=== PATIENT | female | born 1930 | race Caucasian/White ===

== ENCOUNTER 2020-12-17 09:00 | Inpatient (IN) ==
--- NOTE | 2020-11-20 08:54 | PAT Medication Instructions ---
Medication Instructions Date of Service November 20, 2020 Home Medications Medication Instructions Recorded tramadol 50 mg PO Q4H PRN #30 tab 01/11/20 ascorbic acid (vitamin C) 500 mg capsule 1,000 mg PO DAILY atorvastatin 10 mg tablet 10 mg PO HS biotin 2,500 mcg capsule 5,000 mcg PO DAILY calcium carbonate 600 mg(1,500 mg)-vitamin D3 800 unit chewable tablet 1 tab PO DAILY glucosamine HCl 1 dose PO DAILY omega-3 acid ethyl esters 1 dose PO DAILY tramadol 50 mg PO Q4H PRN STOP taking 2 weeks before surgery If surgery is within 2 weeks, stop taking as soon as possible. glucosamine HCl 1 dose PO DAILY omega-3 acid ethyl esters 1 dose PO DAILY DO NOT take the morning of surgery ascorbic acid (vitamin C) 500 mg capsule 1,000 mg PO DAILY biotin 2,500 mcg capsule 5,000 mcg PO DAILY calcium carbonate 600 mg(1,500 mg)-vitamin D3 800 unit chewable tablet 1 tab PO DAILY Take morning of surgery With a small sip of water, OTHERWISE NOTHING TO EAT OR DRINK AFTER MIDNIGHT: tramadol 50 mg PO Q4H PRN (if really needed, may be taken up to four hours before surgery) Take evening before surgery atorvastatin 10 mg tablet 10 mg PO HS tramadol 50 mg PO Q4H PRN (if needed) Other Notes If you have any questions please call us at [phone] or [phone] or [phone] or [phone]
--- NOTE | 2020-11-20 12:14 | Anesthesiology Consultation ---
Date of Service November 20, 2020 Assessment & Plan (1) Encounter for pre-operative examination: COVID Status: As of 11/20 assessment, patient denies travel to endemic area, known exposure/sick contacts, or symptoms of COVID19. Patient advised to adhere to social distancing guidelines, wear a mask in public and avoid large crowds or unnecessary travel in the 2 weeks leading up to surgery. Preoperative COVID19 testing to be completed prior to surgery per surgeon's arrangements. Pat ient encouraged to be extra cautious/conscientious with COVID precautions between COVID testing and surgery. Difficult intubation. Parathyroid surgery done 08/10/12 at [facility]. "Route: eliot- traceal. Method: intubating LMA. Adjuncts: Fiberoptic bronchoscopy. Hilario blade #3, Tube: standard tube 7.0. Anatomic difficult airway due to (limited view of glottis, limited mouth opening, limited neck mobility. Ease of Vent: Easy. Intubation Attempts > 3.. Recommendations for future providers: will require intubation with intubating LMA or with awake FOB." H/O difficult intubation was discussed with patient and her niece (who is a physician). She is also aware that if there is difficulty with intubation she may have a more significant sore throat/hoarse voice than normal. Prosthetic L eye -- pt would like to leave this in DOS. Chart Review Chart Review: Acceptable Risk for Surgery and Patient seen in Pre Admission Testing Teaching & Discussion Instructed NPO after midnight before surgery, except medications with 15 cc of water. Medication instructions provided according to the PAT guidelines. History Surgery Operation Date: 12/17/20 07:15 Proposed Procedures p Right Total Shoulder Arthroplasty Reversed - Yg Griffin MD Height/Weight Height: 5 ft 8.75 in Weight: 60.7 kg Allergies Allergy/AdvReac Type Severity Reaction Status Date / Time codeine AdvReac Unknown "spaced Verified 11/19/20 13:09 out" Medications Home Medications Medication Instructions Recorded Confirmed Last Taken ascorbic acid (vitamin C) 500 mg 1,000 mg PO DAILY cap 10/11/19 11/19/20 12/26/19 08:00 capsule atorvastatin 10 mg tablet 10 mg PO HS 10/11/19 11/19/20 12/26/19 08:00 biotin 2,500 mcg capsule 5,000 mcg PO DAILY cap 10/11/19 11/19/2020 08:00 calcium carbonate 600 mg(1,500 1 tab PO DAILY 10/11/19 11/19/20 12/26/19 08:00 mg)-vitamin D3 800 unit chewable tablet glucosamine HCl 1 dose PO DAILY 10/11/19 11/19/20 12/26/19 08:00 omega-3 acid ethyl esters 1 dose PO DAILY 10/11/19 11/19/20 12/26/19 08:00 tramadol 50 mg PO Q4H PRN #30 tab 01/11/20 11/19/20 Unknown Past Medical History Medical History History of thyroid nodule [place] (hard of hearing) Hyperlipidemia Osteoarthritis Osteoporosis 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 "Route: eliot-traceal. Method: intubating LMA. Adjunts: Fiberoptic bronchoscopy. Hilario blade #3, Tube: standard tube 7.0. Anatomic difficult airway due to (limited view of glottis, limited mouth opening, limited neck mobility. Ease of Vent: Easy. Intubation Attempts > 3.. Recommendations for future providers: will require intubation with intubating LMA or with awake FOB." History of hysterectomy History of left hip replacement Left PHOEBE (01/09/20): SAB at L3/L4 (x1 attempt) at [facility] History of parathyroid surgery History of revision of total replacement of right knee joint History of tonsillectomy Past Anesthesia History Difficult Airway and No Family Hx of Anesthesia Complications History of PONV No Hx of PONV and No Hx of Motion Sickness (jsut very minor) Social History Smoking Status: Never smoker Do You Dip or Chew Tobacco: No Hx Alcohol Use: No Hx Substance Use: No substance use type: does not use Review of Systems Pt denies any recent chest pain, shortness of breath, palpitations, cough, fever, URI, or uncontrolled acid reflux. Physical Exam Vital Signs BP: 158/65 (pt reports taking BP at home, usually 130s systolic) P: 65bpm SPO2: 95% RA T: 98.1 F R: 16 ENMT Mouth: no dental restorations, no chipped teeth and no loose teeth Thyromental Distance: < 3.5 Finger Breadths (3) Mallampati Class: II Neck normal visual inspection and + limited neck extension (mildly limited) Respiratory normal respiratory effort, lungs clear to auscultation Cardiovascular RRR, no murmur, no edema Lab Results Anesthesia Preop Results Results Anesthesia Widget: WBC 5.05 K/uL (4.8-10.8) 11/20/20 Hgb 12.4 g/dL (12.0-16.0) 11/20/20 Hct 37.4 % (37-47) 11/20/20 Plt 180 K/uL (130-400) 11/20/20 Na 142 mmol/L (136-145) 11/20/20 K 4.2 mmol/L (3.5-5.1) 11/20/20 Cl 106 mmol/L (98-107) 11/20/20 CO2 29 mmol/L (21-32) 11/20/20 BUN 19 mg/dl (7-18) H 11/20/20 Creat 0.74 mg/dl (0.6-1.2) 11/20/20 Glucose Level 78 mg/dl (70-99) 11/20/20 PT 10.6 Seconds (9.0-12.0) 11/20/20 PTT 25.1 Seconds (21.0-31.0) 11/20/20 INR 1.0 (0.9-1.1) 11/20/20 HA1c Pending 11/20/20 Urine Color Dark Yellow 11/20/20 Urine Appearance Clear (Clear) 11/20/20 Urine pH 6.0 (4.5-7.5) 11/20/20 Urine Specific Gilby 1.025 (1.000-1.030) 11/20/20 Urine Protein Trace (Negative) H 11/20/20 Urine Glucose (UA) Negative (Negative) 11/20/20 Urine Ketones Trace (Negative) H 11/20/20 Urine Blood Trace (Negative) H 11/20/20 Urine Nitrite Negative (Negative) 11/20/20 Urine Bilirubin Negative (Negative) 11/20/20 Urine Urobilinogen Negative (Negative) 11/20/20 Urine Leukocyte Esterase 2+ (Negative) H 11/20/20 Urine WBC (Auto) >30 /hpf (0-5) H 11/20/20 Urine RBC (Auto) 5-10 /hpf (0-4) H 11/20/20 Urine Hyaline Casts (Auto) 1-5 /lpf (0-5) 11/20/20 Urine Epithelial Cells (Auto) 0-5 /lpf (0-5) 11/20/20 Urine Bacteria (Auto) Negative (Negative) 11/20/20 Urine Yeast Not Reportable 11/20/20 Blood Type A Positive 11/20/20 Antibody Screen NEGATIVE 11/20/20 Testing Electrocardiogram Date: 12/19/19 Findings: + NSR @ (63bpm) iRBBB.. EKG from 03/10/2011, PVCs are no longer present. Chest X-Ray Date: 12/19/19 Findings: + NAD
--- NOTE | 2020-12-14 21:25 | History & Physical Report ---
Date of Service December 14, 2020 Assessment & Plan (1) Rotator cuff arthropathy of right shoulder: Treatment options discussed with patient. She has failed conservative measures as above. She would like to proceed with surgical intervention. Risks, benefits and alternatives to surgery including but not limited to infection, DVT, pain, stiffness, need for revision surgery, damage to blood vessels, damage to nerves, PE, , were discussed with the patient and they wish to proceed. Plan on right reverse total shoulder arthroplasty at [facility] on 12/17/20. All questions answered. She will follow up post op. History of Present Illness Chief Complaint: Right shoulder pain Primary Care Provider: Noe Freeman 89 year old female with PMHx significant for high cholesterol and prosthetic eye presents with longstanding right shoulder pain. Pain is interfering with her daily and leisure activities. She has failed conservative measures including injections, NSAIDs, and therapy. She would like to proceed with surgical intervention. Patient denies headaches, sweats, fevers, chills, double vision, blurred vision, cough, sore throat, dysphagia, chest pain, sob, wheezing, n/v/d/c, numbness, tingling, fatigue, urinary symptoms, mood disorders. ROS positive for rigth shoulder pain and stiffness. Allergies Allergy/AdvReac Type Severity Reaction Status Date / Time codeine AdvReac Unknown "spaced Verified 11/19/20 13:09 out" Home Medications Medication Instructions Recorded Confirmed Type ascorbic acid (vitamin C) 500 mg 1,000 mg PO DAILY cap 10/11/19 11/19/20 History capsule atorvastatin 10 mg tablet 10 mg PO HS 10/11/19 11/19/20 History biotin 2,500 mcg capsule 5,000 mcg PO DAILY cap 10/11/19 11/19/20 History calcium carbonate 600 mg(1,500 1 tab PO DAILY 10/11/19 11/19/20 History mg)-vitamin D3 800 unit chewable tablet glucosamine HCl 1 dose PO DAILY 10/11/19 11/19/20 History omega-3 acid ethyl esters 1 dose PO DAILY 10/11/19 11/19/20 History tramadol 50 mg PO Q4H PRN #30 tab 01/11/20 11/19/20 Rx Past Med/Surg History Medical History History of thyroid nodule [place] (hard of hearing) Hyperlipidemia Osteoarthritis Osteoporosis 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 "Route: eliot-traceal. Method: intubating LMA. Adjunts: Fiberoptic bronchoscopy. Hilario blade #3, Tube: standard tube 7.0. Anatomic difficult airway due to (limited view of glottis, limited mouth opening, limited neck mobility. Ease of Vent: Easy. Intubation Attempts > 3.. Recommendations for future providers: will require intubation with intubating LMA or with awake FOB." History of hysterectomy History of left hip replacement Left PHOEBE (01/09/20): SAB at L3/L4 (x1 attempt) at [facility] History of parathyroid surgery History of revision of total replacement of right knee joint History of tonsillectomy Family History Other Breast cancer No family history of adverse response to anesthesia Social History Smoking Status: Never smoker Second Hand Exposure: No; Do You Dip or Chew Tobacco: No; Tobacco Cessation Education Requested by Patient: No Hx Alcohol Use: No Hx Substance Use: No Preferred Language: Setswana Communication Ability: Effective Visual Impairment: Blindness Route Sales Person Required: No Beliefs That Will Affect Care: None marital status: / Current Living Situation: Alone Other Information That Helps Us Care for You: No Feels Safe at Home: Yes Safety Concerns: Feels Safe At This Time Assistive Devices: Glasses and Prosthesis Assistive Devices Comment: left eye Review of Systems All systems reviewed & are unremarkable except as noted in HPI & below Physical Exam Constitutional: well developed and well nourished; no acute distress Eyes: PERRL, conjunctivae normal, anicteric sclerae ENMT: external ear and nose normal, oropharynx normal Neck: trachea midline, no thyromegaly Respiratory: normal respiratory effort, lungs clear to auscultation Cardiovascular: RRR, no murmur, no edema Musculoskeletal: Right shoulder: Active painful ROM. Tenderness anterolateral acromion. Positive impingement signs. ROM FF to 170 degrees, abduction to 80 degrees. Supraspinatus 3+/4, ER 4+/5, IR 5/5 Skin: no rashes, warm and dry Neurologic: patellar DTR's 2+ bilat, sensation intact Psychiatric: A+Ox3, euthymic affect Results & Data ([facility]) Diagnostic Findings Right shoulder radiographs: Subacromial spurring with AC joint OA. Cystic changes greater tuberosity with superior migration humeral head. Significant degenerative changes GH joint. MRI demonstrates large full thickness and retracted rotator cuff tear
[~2020-12-17 09:00] MED LIST: ACETAMINOPHEN 500 MG TAB PO SCH; BUPIVACAINE 0.5 % 5 MG/1 ML PF 10ML VIAL ONE; CeleBREX 200 MG CAP PO SCH; FAMOTIDINE 20 MG TAB PO SCH; GABAPENTIN 300 MG CAP PO SCH; METOCLOPRAMIDE HCL 10 MG TABLET PO SCH; TRANEXAMIC ACID 1,000 MG **IV Intra-op IV SCH; TRANEXAMIC ACID 1,000 MG **IV Pre-op IV SCH; ceFAZolin 1000MG 1,000 MG/7.5 ML SYR IV SCH; dexAMETHasone 4 MG TAB PO SCH
--- NOTE | 2020-12-17 09:52 | History & Physical Bridge Note ---
Date of Service December 17, 2020 History & Physical Bridge Note I have examined the patient, reviewed the History & Physical and in the interval since the performance of the History & Physical I have noted the following changes of clinical significance: no changes noted
[2020-12-17] MEDS ORDERED: GLYCOPYRROLATE 0.2 MG/ML VIAL ONE ×2 (10:20→10:22)
[2020-12-17] MEDS ORDERED: LIDOCAINE 2% 2 ML VIAL/AMP(20MG/ML) INFIL ONE (10:20)
[2020-12-17] MEDS ORDERED: PROPOFOL IV EMULSION 10 MG/ML 20 ML VIAL IV ONE (10:20)
[2020-12-17] MEDS ORDERED: ONDANSETRON INJ 2 MG/ML 2 ML VIAL ONE (10:20)
[2020-12-17] MEDS ORDERED: DEXAMETHASONE SOD INJ 4 MG/ML VIAL ONE (10:22)
[2020-12-17] MEDS ORDERED: PHENYLEPHRINE 100MCG/ML 5ML SYR IV PRN (10:22)
[2020-12-17] MEDS ORDERED: ATROPINE SULFATE 0.1 MG/ML 10ML SYR IV PRN (10:22)
[2020-12-17] MEDS ORDERED: ePHEDrine sulfate 50 MG/ML AMP IV PRN (10:22)
[2020-12-17] MEDS ORDERED: MEPERIDINE HCL 25 MG/ML CARP/VIAL IV PRN (10:22)
[2020-12-17] MEDS ORDERED: fentaNYL citrate 100 MCG/2 ML VIAL IV PRN (10:22)
[2020-12-17] MEDS ORDERED: ONDANSETRON INJ 2 MG/ML 2 ML VIAL IV PRN ×2 (10:22→16:28)
[2020-12-17] MEDS ORDERED: fentaNYL citrate 100 MCG/2 ML VIAL ONE (10:24)
[2020-12-17] MEDS ORDERED: MIDAZOLAM HCL 1 MG/ML 2ML VIAL ONE (10:24)
[2020-12-17] MEDS ORDERED: ePHEDrine sulfate 50 MG/ML AMP ONE (12:48)
[2020-12-17] MEDS ORDERED: SUGAMMADEX SODIUM 200 MG/2 ML VIAL IV ONE (13:05)
--- NOTE | 2020-12-17 14:17 | Operative Report ---
Post Operative Report Pre & Post Diagnosis Operation Date: 12/17/20 11:55 Pre-Op Diagnosis: Right Shoulder glenohumeral osteoarthritis, rotator cuff arthropathy, chronic irreparable rotator cuff tear, biceps tendinopathy Post-Op Diagnosis: Right shoulder glenohumeral osteoarthritis, rotator cuff arthropathy, chronic irreparable rotator cuff tear, biceps tendinopathy I identified the patient and participated in the time-out.: Yes Procedure Operation Date: 12/17/20 11:55 Actual Procedures p Right Total Shoulder Arthroplasty Reversed with Biceps Tenodesis(Right) - Yg Griffin MD Surgeon Yg Griffin MD Boring Machine Feeder Victoriano LIN Estimated Blood Loss 40 Findings Consistent with Post-Op Diagnosis Specimens Humeral head Drains 2 Hemovac Anesthesia Type General Regional Complications none Disposition Disposition: Recovery Room Indications 89-year-old female younger than stated age. Patient lives an active lifestyle. Patient has failed conservative management and has chronic pain and weakness of the right shoulder. Radiographs demonstrate some proximal migration humerus moderately advanced glenohumeral osteoarthritis and MRI demonstrates large degenerative retracted rotator cuff tear and osteoarthritis glenohumeral joint Description of Procedure The patient was taken to the operating room and anesthetized under regional block and general anesthetic. The patient was positioned on the operating table in a 30 beach chair position with a towel roll under the medial border of the right scapula. The arm was draped free to be able to manipulate the shoulder as needed. The right upper extremity was prepped and draped in usual sterile fashion. Exam demonstrated 150 degrees forward elevation 90 degrees abduction 30 degrees external rotation, a thin arm. An anterior deltopectoral approach was performed. A longitudinal incision was made in the deltopectoral interval. The skin was incised sharply. Subcutaneous flaps were elevated off the fascia. There was no well-developed cephalic vein. The clavipectoral fascia was divided at the lateral margin of the conjoined tendon and extended up to the CA ligament. The following findings were noted: There was marked biceps tenosynovitis and marked bursitis of the subscapularis tendon extending into a large subacromial bursal collection. Subscapularis tendon was intact the supraspinatus and infraspinatus tendon were torn and retracted with some infraspinatus tendon tissue appeared to be repairable. Biceps tendon was widened and had marked tendinopathy and chronic SLAP tear and labral tear with degenerative changes in the glenohumeral joint.. The upper centimeter of the pectoralis was released for inferior exposure. The biceps tendon findings demonstrated marked biceps tenosynovitis. A tenosynovectomy was performed and then the biceps tendon was tenodesed to the pectoralis tendon with #2 FiberWire. The proximal biceps was resected. The subscapularis tendon was taken down off the lesser tuberosity using a subperiosteal dissection. A #1 Vicryl traction suture was placed into the free end of the subscapularis tendon and capsule. The subscapular muscle fibers were split longitudinally at the level of the circumflex vessels. The circumflex vessels were identified and tied off with silk ties and divided laterally. A Kitner elevator was used to free up the inferior fibers of the subscapularis off of the capsule. The axillary nerve was identified with a tug test and protected with a blunt Carolyn retractor between the nerve and the capsule. The subscapularis tendon was then taken down off of the lesser tuberosity subperiosteally and subperiosteal dissection was performed along the neck of the humerus as the arm is gradually externally rotated exposing the humeral head. The humeral head findings demonstrated global articular thinning and wear with grade 3 close grade 4 osteoarthritis. A Pina elevator was used to assist in releasing the capsule of the neck of the humerus. The capsule was divided with Leblanc scissors down to the glenoid released off the anterior glenoid and the rotator interval was released to meet the capsular release and a 360 release of the subscapularis was accomplished. A Fukuda retractor was placed into the joint retracting the humeral head posterior. Glenoid findings demonstrated yumiko bal articular wear with a posterior inferior osteophyte.. The labrum and biceps tendon was resected. an anterior-inferior and posterior inferior capsular release were performed with electrocautery and a Pina elevator on bone with the axillary nerve protected inferiorly by the retractor. Posterior inferior osteophyte was resected. Attention was then taken to the humeral preparation. The cutting guide was placed into the humeral head. It was positioned at 20 of retroversion. Oscillating saw was used to resect the humeral head giving the cut above the level of the posterior rotator cuff insertion site. The humerus was then prepared for the stem. I used the ascend flex stem from [employer]. The sizing broaches were used followed by trial broaches up to a size 3B long which had the appropriate fit and fill. The appropriate sized cut protector was placed. The humerus was then retracted posterior to the glenoid. The glenoid was sized for a 25 mm baseplate. The guide for the baseplate was positioned in a 10 inferior tilt and the central drill hole was made. The reamer for the aequalis 25 mm hydroxyapatite-coated baseplate was used. The central drill was widened for the peg. The aequalis 25 mm hydroxyapatite-coated baseplate was impacted into position. The base plate was transfixed with superior and inferior locking screws and anterior and posterior compression screws with stable fixation. The fan reamer was used for the 36 millimeter glenoid sphere. After irrigation the standard 36 mm glenoid sphere was impacted onto the baseplate and the screw was tightened. Attention was taken back to the humerus. The cut protector was removed and the plus or high offset humeral tray trial was assembled to the trial stem rotated appropriately to get bony coverage and then screwed in position. A trial reduction was performed. A +6 x 36 trial insert demonstrated good stability and no shuck. The trials were removed. 3 drill holes are made into the harder bone in the bicipital groove area and 3 #5 FiberWire sutures were placed transosseously. The canal was irrigated with pulsatile lavage with saline solution. The final component was assembled. The final component was 3B long PTC stem assembled to plus or high offset tray and a 36+6 reversed insert. This was then impacted into the humerus with a tight press-fit. It was reduced to the glenoid sphere. Stability was verified. Subscapularis was repaired with the #5 FiberWire sutures using Som-Dontrell suture technique. Lateral row soft tissue repair was performed with #2 FiberWire [id number] sutures. The pectoralis was repaired with #2 FiberWire [id number] sutures reinforcing the biceps tendon tenodesis. The arm was taken through a range of motion which demonstrated 150 degrees forward e levation 90 degrees abduction and 45 degrees external rotation. The implant was stable through the range of motion tested. The wound was copiously irrigated. 2 Hemovac drains were placed. The deltopectoral interval was closed with [id number] #1 Vicryl sutures. The subcutaneous tissues were closed with 2- 0 Vicryl sutures. The skin was closed with tomasa. Sterile dressings were applied and a shoulder immobilizer. Victoriano LIN my physician certified first assistant assisted in the procedure to the entire procedure including patient positioning arm positioning prepping and draping soft tissue retraction instrument management suture management and performed the subcutaneous and skin closure and will participate in the postoperative care of the patient. I attest to the content of the Intraoperative Record and any orders documented therein. Any exceptions are noted below.
[2020-12-17] MEDS ORDERED: ESMOLOL HCL INJ 10 MG/ML 10ML VIAL IV ONE (14:29)
[2020-12-17] MEDS: LABETALOL HCL IV 5 MG/ML 20ML IV PRN ×2 (14:37→14:50)
--- NOTE | 2020-12-17 14:50 | XRay Report ---
XR shoulder RT min 2V routine CLINICAL HISTORY: Post shoulder surgery COMPARISON: None. DISCUSSION: There are postsurgical changes of a reverse total right shoulder arthroplasty. There is n o dislocation. There are overlying skin tomasa and surgical drains. There is gas within the soft tis sues consistent with recent surgery. IMPRESSION: Postsurgical changes of a reverse total right shoulder arthroplasty. ACT 112: Negative or not required by law. Electronically signed by: Elder Guadalupe M.D. 12/17/2020 2:49 PM
[2020-12-17] MEDS ORDERED: METOCLOPRAMIDE HCL INJ 5 MG/ML 2 ML VIAL IV PRN (16:28)
[2020-12-17] MEDS ORDERED: HYDROmorphone INJ 0.5 MG/0.5 ML SYR IV PRN (16:28)
[2020-12-17] MEDS ORDERED: oxyCODONE HCL IR 5 MG TAB (IMMEDIATE RELEASE) PO PRN (16:28)
[2020-12-17] MEDS ORDERED: bisacodyL 10 MG SUPP PR PRN (16:28)
[2020-12-17] MEDS ORDERED: NALOXONE HCL 0.4 MG/1 ML VIAL/CARP IV PRN (16:28)
[2020-12-17] MEDS ORDERED: MAGNESIUM HYDROXIDE SUSP 30 ML UDC PO PRN (16:28)
[2020-12-17] MEDS: LACTATED RINGER'S 1,000 ML IV SCH (16:30)
--- NOTE | 2020-12-17 16:42 | Anesthesiology Progress Note ---
Date of Service December 17, 2020 Anesthesia Post Procedure Vital Signs Vital Signs: Temp Pulse Pulse Resp BP Pulse Ox 12/17/20 15:55 67 18 160/75 H 93 12/17/20 15:40 72 18 157/65 H 92 12/17/20 15:25 36.5 C 65 12 152/66 H 94 12/17/20 15:15 67 20 156/71 H 94 12/17/20 15:05 66 19 157/70 H 95 12/17/20 14:55 63 19 159/71 H 92 12/17/20 14:45 65 18 172/77 H 94 12/17/20 14:35 78 16 185/86 H 98 12/17/20 14:25 74 20 188/85 H 99 12/17/20 14:18 36.0 C L 74 19 187/86 H 99 12/17/20 10:00 37.2 C 63 18 166/66 H 97 Transfer of Care Handoff Completed per policy Notes Mental Status: alert / awake / arousable and participated in evaluation Patient Amnestic to Procedure: Yes Nausea / Vomiting: adequately controlled Pain: adequately controlled Airway Patency, RR, SpO2: stable & adequate BP & HR: stable & adequate Hydration State: stable & adequate Anesthetic Complications: no major complications apparent
[2020-12-17] MEDS: SODIUM CHLORIDE 0.9% 1000ML 1,000 ML IV SCH (17:18)
[2020-12-17] MEDS: ceFAZolin 1000MG 1,000 MG/7.5 ML SYR IV SCH (20:20)
[2020-12-17] MEDS: DOCUSATE SODIUM 100 MG CAP PO SCH (20:21)
[2020-12-17] MEDS ORDERED: SENNA 8.6 MG TAB PO SCH (21:00)
[2020-12-17] MEDS ORDERED: ATORVASTATIN 10 MG TAB PO SCH (21:00)
[2020-12-17] MEDS: ACETAMINOPHEN 500 MG TAB PO SCH (21:26)
[2020-12-17] MEDS ORDERED: COUGH DROP (SUGAR FREE) LOZ 24 LOZ/1 BOX BUCCAL ONE (21:28)
[2020-12-17] MEDS ORDERED: ZOLPIDEM TARTRATE 10 MG TAB PO ONE (22:01)
[2020-12-18] MEDS: ceFAZolin 1000MG 1,000 MG/7.5 ML SYR IV SCH (03:46)
[2020-12-18] MEDS: SODIUM CHLORIDE 0.9% 1000ML 1,000 ML IV SCH (03:46)
[2020-12-18] MEDS: ACETAMINOPHEN 500 MG TAB PO SCH (05:30)
--- NOTE | 2020-12-18 06:45 | Orthopedic Progress Note ---
Date of Service December 18, 2020 Assessment & Plan (1) S/p reverse total shoulder arthroplasty: Plan: POD#1 Right reverse TSA, biceps tendodesis -PT/OT-no formal PT x 6 weeks. May do elbow/wrist/hand motion, shrugs, pendulums -DVT prophylaxis-SCDs, ASA 81mg daily -Pain management as written -AM labs pending -D/C planning-plan on discharge home, likely later today. Admission and Anticipated Discharge Date Admission Date: December 17, 2020 Subjective POD#1 right reverse TSA. Patient doing well. Not having any pain. No other complaints. Denies chest pain, sob, dizziness, n/v/d. Review of Systems Review of Systems: All systems reviewed & are unremarkable except as noted in Subjective Physical Exam Physical Exam: Dressing to right shoulder c/d/i, sling in place. Fingers mobile, good bark tanner strength. Distally n/v status and sensation intact. Constitutional: well developed and well nourished; no acute distress Results & Data ([facility]) Vital Signs (Past 12 Hours) Vital Signs Temp Pulse Pulse Resp BP Pulse Ox 12/18/20 02:23 36.5 C 75 20 147/69 H 94 12/17/20 23:06 36.4 C L 74 16 145/60 H 97 12/17/20 20:03 36.7 C 69 16 155/66 H 96
[2020-12-18 07:17] LABS: Basophils # (auto) 0.01 K/uL (0-0.2); Basophils % (auto) 0.1 %; Hematocrit (blood only) 34.3 % (37-47); Hemoglobin 11.2 g/dL (12.0-16.0); Immature Granulocytes # (auto) 0.02 K/uL (0.00-0.02); Immature Granulocytes % (auto) 0.2 %; Lymphocytes # (auto) 0.91 K/uL (1.2-3.4); Lymphocytes % (auto) 8.4 %; Mean Corpuscular Hemoglobin 29.9 pg (25-34); Mean Corpuscular Hgb Conc 32.7 g/dL (32-36); Mean Corpuscular Volume 91.7 fL (80-100); Mean Platelet Volume 9.7 fL (7.4-10.4); Monocytes # (auto) 0.95 K/uL (0.11-0.59); Monocytes % (auto) 8.8 %; Neutrophils # (auto) 8.91 K/uL (1.4-6.5); Neutrophils % (auto) 82.5 %; Platelet Count 183 K/uL (130-400); RDW Coefficient of Variation 13.4 % (11.5-14.5); RDW Standard Deviation 44.8 fL (36.4-46.3); Red Blood Count 3.74 M/uL (4.2-5.4)
[2020-12-18 07:35] LABS: BUN Creatinine Ratio 20.5 (10-20); Calcium 8.5 mg/dl (8.5-10.1); Creatinine Clr Calc Pharmacy 40.8 ml/min; Est GFR (African American) 66.2 ml/min; Est GFR (Non-African American) 57.1 ml/min; Potassium 4.3 mmol/L (3.5-5.1)
[2020-12-18] MEDS: LACTATED RINGER'S 1,000 ML IV SCH (07:35)
[2020-12-18] MEDS: DOCUSATE SODIUM 100 MG CAP PO SCH (08:51)
[2020-12-18] MEDS ORDERED: ASPIRIN 81 MG ECTAB PO SCH (09:00)
[2020-12-18] MEDS ORDERED: GLUCOSAMINE SULFATE 500 MG CAP PO SCH (09:00)
[2020-12-18] MEDS ORDERED: MULTIVITAMIN TAB PO SCH (09:00)
[2020-12-18] MEDS ORDERED: CALCIUM 600MG + VIT D 400 IU TAB PO SCH (09:00)
[2020-12-18] MEDS ORDERED: ASCORBIC ACID 500 MG TAB PO SCH (09:00)
--- NOTE | 2020-12-18 09:19 | Hospitalist Consultation ---
Date of Consultation December 18, 2020 Assessment & Plan (1) S/p reverse total shoulder arthroplasty: Postop management as per orthopedics Pain control, bowel regimen PT/OT Aspirin 81 mg daily for DVT prophylaxis, SCDs (2) Hyperlipidemia: Continue statin (3) Osteoporosis: Continue calcium carbonate (4) Osteoarthritis: Continue glucosamine, pain control as needed (5) History of primary hyperparathyroidism: Status post parathyroidectomy (6) Allergic rhinitis: No acute issues, not taking medication for this (7) DVT prophylaxis: SCDs, aspirin 81 mg daily Disposition-patient is likely be discharged later today, hospital service will sign off at this time. History of Present Illness Reason for Consultation: Postop medical management Requesting Physician: Dr. 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 Hospitalist service is consulted for medical management postoperatively. She feels excellent today, has no pain at all as nerve block still working. Denies CP or SOB, no nausea or vomiting. Not lightheaded and has been ambulating independently in the room. Allergies Allergy/AdvReac Type Severity Reaction Status Date / Time codeine AdvReac Unknown "spaced Verified 12/17/20 09:42 out" Home Medications Medication Instructions Recorded Confirmed Type ascorbic acid (vitamin C) 500 mg 1,000 mg PO DAILY cap 10/11/19 12/17/20 History capsule atorvastatin 10 mg tablet (Lipitor) 10 mg PO HS 10/11/19 12/17/20 History biotin 2,500 mcg capsule 5,000 mcg PO DAILY cap 10/11/19 12/17/20 History calcium carbonate 600 mg(1,500 1 tab PO DAILY 10/11/19 12/17/20 History mg)-vitamin D3 800 unit chewable tablet (Caltrate 600 plus D) glucosamine HCl 1 dose PO DAILY 10/11/19 12/17/20 History omega-3 acid ethyl esters 1 dose PO DAILY /12/2312/17/20 History acetaminophen 500 mg tablet 1,000 mg PO Q8 #60 tab 12/18/20 Rx (Tylenol Extra Strength) aspirin 81 mg tablet,delayed 81 mg PO DAILY #60 tab 12/18/20 Rx release oxycodone 5 mg tablet 5 - 10 mg PO .Q4h-6h PRN #30 tab 12/18/20 Rx MDD 6 Patient History Medical History Allergic rhinitis History of primary hyperparathyroidism History of thyroid nodule [place] (hard of hearing) Hyperlipidemia Osteoarthritis Osteoporosis 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. "Route: elito-traceal. Method: intubating LMA. Adjunts: Fiberoptic bronchoscopy. Hilario blade #3, Tube: standard tube 7.0. Anatomic difficult airway due to (limited view of glottis, limited mouth opening, limited neck mobility. Ease of Vent: Easy. Intubation Attempts > 3.. Recommendations for future providers: will require intubation with intubating LMA or with awake FOB." History of hysterectomy History of left hip replacement Left PHOEBE (01/09/20): SAB at L3/L4 (x1 attempt) at [facility] History of parathyroid surgery History of revision of total replacement of right knee joint History of tonsillectomy Family History Other Breast cancer No family history of adverse response to anesthesia Social History Smoking Status: Never smoker Second Hand Exposure: No; Do You Dip or Chew Tobacco: No; Tobacco Cessation Education Requested by Patient: No Hx Alcohol Use: No Hx Substance Use: No Preferred Language: Tajik Communication Ability: Effective Visual Impairment: Blindness Fisher Trot Line Required: No Beliefs That Will Affect Care: None marital status: / Current Living Situation: Alone Other Information That Helps Us Care for You: No Feels Safe at Home: Yes Safety Concerns: Feels Safe At This Time Assistive Devices: Glasses Assistive Devices Comment: left eye Review of Systems Review of Systems: All systems reviewed & are unremarkable except as noted in HPI & below Physical Exam Constitutional: WD/WN, vitals as above Eyes: + anicteric sclerae ENMT: external ear and nose normal, oropharynx normal Neck: trachea midline, no thyromegaly Respiratory: normal respiratory effort, lungs clear to auscultation Cardiovascular: RRR, no murmur, no edema Chest (Breasts): Chest: normal inspection of chest Gastrointestinal (Abdomen): normal bowel sounds, soft, nontender, no hepatosplenomegaly Musculoskeletal: Extremities: + extremities abnormal to inspection (RUE in sling), no cyanosis and no clubbing Skin: no rashes, warm and dry Neurologic: moves all extremities and awake; no focal motor deficits Psychiatric: A+Ox3, euthymic affect Lymphatic: no lymphedema Results & Data Results & Data ([facility]) Vital Signs (Past 12 Hours) Vital Signs Temp Pulse Pulse Resp BP Pulse Ox 12/18/20 07:15 36.6 C 68 16 153/67 H 95 12/18/20 02:23 36.5 C 75 20 147/69 H 94 12/17/20 23:06 36.4 C L 74 16 145/60 H 97 Laboratory Results 12/18/20 12/18/20 12/17/20 Range/Units 05:42 05:42 09:13 WBC 10.80 (4.8-10.8) K/uL RBC 3.74 L (4.2-5.4) M/uL Hgb 11.2 L (12.0-16.0) g/dL Hct 34.3 L (37-47) % MCV 91.7 (80-100) fL MCH 29.9 (25-34) pg MCHC 32.7 (32-36) g/dL RDW Std Deviation 44.8 (36.4-46.3) fL RDW Coeff of Ninfa 13.4 (11.5-14.5) % Plt Count 183 (130-400) K/uL MPV 9.7 (7.4-10.4) fL Immature Gran % (Auto) 0.2 % Neut % (Auto) 82.5 % Lymph % (Auto) 8.4 % [place] % (Auto) 8.8 % Eos % (Auto) 0.0 % Baso % (Auto) 0.1 % Neut # (Auto) 8.91 H (1.4-6.5) K/uL Lymph # (Auto) 0.91 L (1.2-3.4) K/uL [place] # (Auto) 0.95 H (0.11-0.59) K/uL Eos # (Auto) 0.00 (0-0.5) K/uL Baso # (Auto) 0.01 (0-0.2) K/uL Immature Gran # (Auto) 0.02 (0.00-0.02) K/uL Sodium 141 (136-145) mmol/L Potassium 4.3 (3.5-5.1) mmol/L Chloride 109 H (98-107) mmol/L Carbon Dioxide 25 (21-32) mmol/L Anion Gap 7.0 (3-11) BUN 18 (7-18) mg/dl Creatinine 0.90 (0.6-1.2) mg/dl Est Cr Clr Drug Dosing 40.8 ml/min Est GFR ( Amer) 66.2 ml/min Est GFR (Non-Af Amer) 57.1 ml/min BUN/Creatinine Ratio 20.5 H (10-20) Glucose 142 H (70-99) mg/dl Calcium 8.5 (8.5-10.1) mg/dl COVID-19 Eval Order SARS-CoV-2, RNA, NAAT NEGATIVE (NEGATIVE) 12/17/20 Range/Units 09:13 WBC (4.8-10.8) K/uL RBC (4.2-5.4) M/uL Hgb (12.0-16.0) g/dL Hct (37-47) % MCV (80-100) fL MCH (25-34) pg MCHC (32-36) g/dL RDW Std Deviation (36.4-46.3) fL RDW Coeff of Ninfa (11.5-14.5) % Plt Count (130-400) K/uL MPV (7.4-10.4) fL Immature Gran % (Auto) % Neut % (Auto) % Lymph % (Auto) % [place] % (Auto) % Eos % (Auto) % Baso % (Auto) % Neut # (Auto) (1.4-6.5) K/uL Lymph # (Auto) (1.2-3.4) K/uL [place] # (Auto) (0.11-0.59) K/uL Eos # (Auto) (0-0.5) K/uL Baso # (Auto) (0-0.2) K/uL Immature Gran # (Auto) (0.00-0.02) K/uL Sodium (136-145) mmol/L Potassium (3.5-5.1) mmol/L Chloride (98-107) mmol/L Carbon Dioxide (21-32) mmol/L Anion Gap (3-11) BUN (7-18) mg/dl Creatinine (0.6-1.2) mg/dl Est Cr Clr Drug Dosing ml/min Est GFR ( Amer) ml/min Est GFR (Non-Af Amer) ml/min BUN/Creatinine Ratio (10-20) Glucose (70-99) mg/dl Calcium (8.5-10.1) mg/dl COVID-19 Eval [facility] SARS-CoV-2, RNA, NAAT (NEGATIVE) PG Care Time/CCT Total # of Minutes Spent Total Time Spent with Patient: Total time spent is greater than 50% in coordination of care (as documented) at patient's floor/unit and/or counseling patient: Coding Level of Care Code 89142 Inpt Consult Level 2 Diagnoses S/p reverse total shoulder arthroplasty Z96.619 Hyperlipidemia E78.5 Osteoporosis M81.0 Osteoarthritis M19.90 History of primary hyperparathyroidism Z86.39 Allergic rhinitis J30.9 DVT prophylaxis Z29.9
--- NOTE | 2020-12-19 07:19 | Discharge Summary ---
Date of Service December 19, 2020 Admission HPI Per Admitting Provider 89 year old female with PMHx significant for high cholesterol and prosthetic eye presents with longstanding right shoulder pain. Pain is interfering with her daily and leisure activities. She has failed conservative measures including injections, NSAIDs, and therapy. She would like to proceed with surgical intervention. Patient denies headaches, sweats, fevers, chills, double vision, blurred vision, cough, sore throat, dysphagia, chest pain, sob, wheezing, n/v/d/c, numbness, tingling, fatigue, urinary symptoms, mood disorders. ROS positive for rigth shoulder pain and stiffness. Admission Exam Per Admitting Provider Constitutional: well developed and well nourished; no acute distress Eyes: PERRL, conjunctivae normal, anicteric sclerae ENMT: external ear and nose normal, oropharynx normal Neck: trachea midline, no thyromegaly Respiratory: normal respiratory effort, lungs clear to auscultation Cardiovascular: RRR, no murmur, no edema Musculoskeletal: Right shoulder: Active painful ROM. Tenderness anterolateral acromion. Positive impingement signs. ROM FF to 170 degrees, abduction to 80 degrees. Supraspinatus 3+/4, ER 4+/5, IR 5/5 Skin: no rashes, warm and dry Neurologic: patellar DTR's 2+ bilat, sensation intact Psychiatric: A+Ox3, euthymic affect Principal Diagnosis Right shoulder rotator cuff arthropathy Discharge Exam Constitutional well developed and well nourished; no acute distress Eyes PERRL, conjunctivae normal, anicteric sclerae ENMT external ear and nose normal, oropharynx normal Neck trachea midline, no thyromegaly Respiratory normal respiratory effort, lungs clear to auscultation Cardiovascular RRR, no murmur, no edema Skin no rashes, warm and dry Neurologic patellar DTR's 2+ bilat, sensation intact Psychiatric A+Ox3, euthymic affect Discharge Data Allergies Allergy/AdvReac Type Severity Reaction Status Date / Time codeine AdvReac Unknown "spaced Verified 12/17/20 09:42 out" Consultations 12/12/20 10:20 Consult Hospitalist Routine Procedures Performed Operation Date: 12/17/20 11:55 Actual Procedures p Right Total Shoulder Arthroplasty Reversed with Biceps Tenodesis(Right) - Yg Griffin MD Ordered Studies 12/17/20 05:00 US - OR guided needle placemen Routine Hospital Course (1) S/p reverse total shoulder arthroplasty: Patient presented for same day admission following right reverse TSA on 12/17/20. She tolerated procedure well. The Patient had an uneventful hospital course. Post-operatively, her activity was progressed and well tolerated. They participated in PT. Labs remained stable- lowest hemoglobin recorded: 11.2. Dr. Kayli Fernandez of medical service was consulted for medical management during admission. Pain controlled on oral medications. Please refer to daily progress notes and PT notes for complete details. After exam on 12/18/20, patient was felt to be stable for discharge home. Patient will f/u in the office in about 2 weeks for further evaluation including x-rays and incision check, sooner if having any issues or concerns. Lab Results 12/17/20 12/17/20 12/18/20 Range/Units 09:13 09:13 05:42 WBC 10.80 (4.8-10.8) K/uL RBC 3.74 L (4.2-5.4) M/uL Hgb 11.2 L (12.0-16.0) g/dL Hct 34.3 L (37-47) % MCV 91.7 (80-100) fL MCH 29.9 (25-34) pg MCHC 32.7 (32-36) g/dL RDW Std Deviation 44.8 (36.4-46.3) fL RDW Coeff of Ninfa 13.4 (11.5-14.5) % Plt Count 183 (130-400) K/uL MPV 9.7 (7.4-10.4) fL Immature Gran % (Auto) 0.2 % Neut % (Auto) 82.5 % Lymph % (Auto) 8.4 % [place] % (Auto) 8.8 % Eos % (Auto) 0.0 % Baso % (Auto) 0.1 % Neut # (Auto) 8.91 H (1.4-6.5) K/uL Lymph # (Auto) 0.91 L (1.2-3.4) K/uL [place] # (Auto) 0.95 H (0.11-0.59) K/uL Eos # (Auto) 0.00 (0-0.5) K/uL Baso # (Auto) 0.01 (0-0.2) K/uL Immature Gran # (Auto) 0.02 (0.00-0.02) K/uL Sodium (136-145) mmol/L Potassium (3.5-5.1) mmol/L Chloride (98-107) mmol/L Carbon Dioxide (21-32) mmol/L Anion Gap (3-11) BUN (7-18) mg/dl Creatinine (0.6-1.2) mg/dl Est Cr Clr Drug Dosing ml/min Est GFR ( Amer) ml/min Est GFR (Non-Af Amer) ml/min BUN/Creatinine Ratio (10-20) Glucose (70-99) mg/dl Calcium (8.5-10.1) mg/dl COVID-19 Eval [facility] SARS-CoV-2, RNA, NAAT NEGATIVE (NEGATIVE) 12/18/20 Range/Units 05:42 WBC (4.8-10.8) K/uL RBC (4.2-5.4) M/uL Hgb (12.0-16.0) g/dL Hct (37-47) % MCV (80-100) fL MCH (25-34) pg MCHC (32-36) g/dL RDW Std Deviation (36.4-46.3) fL RDW Coeff of Ninfa (11.5-14.5) % Plt Count (130-400) K/uL MPV (7.4-10.4) fL Immature Gran % (Auto) % Neut % (Auto) % Lymph % (Auto) % [place] % (Auto) % Eos % (Auto) % Baso % (Auto) % Neut # (Auto) (1.4-6.5) K/uL Lymph # (Auto) (1.2-3.4) K/uL [place] # (Auto) (0.11-0.59) K/uL Eos # (Auto) (0-0.5) K/uL Baso # (Auto) (0-0.2) K/uL Immature Gran # (Auto) (0.00-0.02) K/uL Sodium 141 (136-145) mmol/L Potassium 4.3 (3.5-5.1) mmol/L Chloride 109 H (98-107) mmol/L Carbon Dioxide 25 (21-32) mmol/L Anion Gap 7.0 (3-11) BUN 18 (7-18) mg/dl Creatinine 0.90 (0.6-1.2) mg/dl Est Cr Clr Drug Dosing 40.8 ml/min Est GFR ( Amer) 66.2 ml/min Est GFR (Non-Af Amer) 57.1 ml/min BUN/Creatinine Ratio 20.5 H (10-20) Glucose 142 H (70-99) mg/dl Calcium 8.5 (8.5-10.1) mg/dl COVID-19 Eval Order SARS-CoV-2, RNA, NAAT (NEGATIVE) Total Time Total Time Spent Total Time Spent (In Minutes): 20 Discharge Plan Discharge Items Patient Disposition: Home - Self-Care Reason For Visit: Osteoarthritis, Right Shoulder Discharge Diagnosis: Right shoulder rotator cuff arthropathy Activity: Per Instructions section Non-emergency contact: Surgeon Call non-emergency contact if: you have any medication questions, your pain is not controlled, your pain is unusual for you, your pain is concerning for you, you have a fever, your temperature is above 101, your wound has increased redness and your wound has increased drainage Follow-up/Referrals: Noe Freeman D.O. [Primary Care Provider] - Diet: Regular Addtl Attending Provider Instructions: ACTIVITY RECOMMENDATIONS: SELF CARE INSTRUCTIONS AFTER TOTAL SHOULDER ARTHROPLASTY REVERSE A. You may do daily exercises as taught in physical therapy while in hospital. No lifting with the operative arm. B. You are to wear your sling/immobilizer at all times EXCEPT when performing your daily exercises and for hygiene purposes. C. You may perform dry, daily dressing changes. Please keep your incision covered. You may shower 48 hours after surgery. Do not apply soap or any ointment/lotions directly over incision. Do not soak incision in bath tub/swimming pool. D. You may use ice as needed to operative shoulder. SPECIAL CARE INSTRUCTIONS: VERY IMPORTANT TO READ AND REVIEW A. There are a few signs you need to watch for after you are home. Call [facility] at [phone] if you experience any of the followin. Increased severe shoulder pain. Some pain is expected especially when you exercise. 2. Increased swelling in you shoulder or arm; pain or swelling in either upper extremity. 3. Any fluid drainage from the incision. 4. Shortness of breath or chest pain. B. Please call [facility] at [phone] if you have any questions or concerns about your operation or recovery. C. Call your physician if: 1. Temperature is greater than 101 degrees (F). 2. Pain is not relieved by prescribed pain medications. 3. Increase drainage or redness from incision. 4. Unanswered questions or concerns. FOLLOW UP VISIT: Please call [facility] at [phone] to schedule a follow up appointment with Dr. Griffin or his PA in 12-14 days from your surgery date. Stand-Alone Forms: My [facility], Smoking Cessation Medications and DC Order Prescriptions: New aspirin 81 mg Tablet,Delayed Release (Dr/Ec) 81 mg PO DAILY Qty: 60 RF: 0 acetaminophen [Tylenol Extra Strength] 500 mg Tablet 1,000 mg PO Q8 Qty: 60 RF: 0 oxycodone 5 mg Tablet 5 - 10 mg PO .Q4h-6h MDD 6 PRN (Reason: pain) Qty: 30 RF: 0 Continued biotin 2,500 mcg capsule 5,000 mcg PO DAILY RF: 0 omega-3 acid ethyl esters 1 dose PO DAILY RF: 0 ascorbic acid (vitamin C) 500 mg capsule 1,000 mg PO DAILY RF: 0 Caltrate 600 plus D 600 mg (1,500 mg)-800 unit tablet,chewable 1 tab PO DAILY RF: 0 glucosamine HCl 1 dose PO DAILY RF: 0 atorvastatin [Lipitor] 10 mg tablet 10 mg PO HS RF: 0 Discontinued tramadol 50 mg Tablet 50 mg PO Q4H PRN (Reason: pain) Qty: 30 RF: 0 Discharge Orders: Discharge Order (Routine); Ordered 12/18/20 Ordered By: Alex Carey/Other Patient Handouts: Understanding Deep Vein Thrombosis Admission Data Admit Date/Time: 12/17/20 14:17 Attending Provider: Yg Griffin Admit Provider: Yg Griffin Primary Care Provider: Noe Freeman Other Providers: Kayli Fernandez Other Interventions: Discharge Summary Assessment (RN) Last Done: 12/18/20 09:31
== END 2020-12-18 13:04 | disposition home or self-care (01) | DRG 483 ==
LOC: ASU 09:00 → 3E 14:17